=== PATIENT | female | born 1995 | race American Indian/Alaskan Native ===

== ENCOUNTER 2017-12-13 18:57 | Emergency (ER) | payer MEDICAID ==
[2017-12-13 19:23] LABS: Hematocrit 35.1 % (30.3-42.9); Hemoglobin 11.7 gm/dl (10.1-14.3); Mean Corpuscular HGB Conc 33 % (30-34); Mean Corpuscular Volume 73 fl (79-97); Platelet Count 258 K/mm3 (140-440); Red Blood Count 4.78 M/mm3 (3.65-5.03)
[2017-12-13 19:24] LABS: Mean Corpuscular Hemoglobin 25 pg (28-32); Red Cell Distribution Width 20.1 % (13.2-15.2)
[2017-12-13] MEDS ORDERED: NACL 0.9% 1000 ML 1,000 ML IV ONE (23:15)
[2017-12-13] MEDS ORDERED: ZOFRAN IV ONE (23:16)
--- NOTE | 2017-12-13 23:17 | Emergency Department Report ---
ED Female HPI - General Chief complaint: Abdominal Pain Stated complaint: ABD PAIN Time Seen by Provider: 12/13/17 23:07 Source: patient Mode of arrival: Ambulatory Limitations: No Limitations - History of Present Illness Initial comments: Patient is a 22-year-old female who is presenting with some lower abdominal cramping for the last 2-3 days. Patient states that she is noticing small amount of spotting when she wipes after urinating. Patient also has a pressure sensation in the suprapubic region. Patient took a home test which was positive. Patient's last menstrual period was the end of September 2017. Patient denies any fevers chills cough or upper abdominal pain diarrhea at this time. Patient is having some nausea and vomiting. - Related Data Previous Rx's Medication Instructions Recorded Last Taken Type Nitrofurantoin [place]/M-Cryst 100 mg PO Q12HR #14 capsule 12/14/17 Unknown Rx [Macrobid CAP] Ondansetron [Zofran Odt] 4 mg PO Q8HR PRN #10 tab.rapdis 12/14/17 Unknown Rx Allergies Allergy/AdvReac Type Severity Reaction Status Date / Time No Known Allergies Allergy Unverified 12/13/17 19:03 ED Review of Systems ROS: Stated complaint: ABD PAIN Other details as noted in HPI Comment: All other systems reviewed and negative ED Past Medical Hx - Past Medical History Previous Medical History?: Yes Additional medical history: Ectopic 2014 - Surgical History Past Surgical History?: Yes Additional Surgical History: Ectopic - Social History Smoking Status: Former Smoker Substance Use Type: None - Medications Home Medications: Home Medications Medication Instructions Recorded Confirmed Last Taken Type Nitrofurantoin [place]/M-Cryst 100 mg PO Q12HR #14 capsule 12/14/17 Unknown Rx [Macrobid CAP] Ondansetron [Zofran Odt] 4 mg PO Q8HR PRN #10 tab.rapdis 12/14/17 Unknown Rx ED Physical Exam - General Limitations: No Limitations General appearance: alert, in no apparent distress - Head Head exam: Present: atraumatic, normocephalic - Eye Eye exam: Present: normal appearance - ENT ENT exam: Present: mucous membranes moist - Neck Neck exam: Present: normal inspection - Respiratory Respiratory exam: Present: normal lung sounds bilaterally. Absent: respiratory distress, wheezes, rales, rhonchi - Cardiovascular Cardiovascular Exam: Present: regular rate, normal rhythm. Absent: systolic murmur, diastolic murmur, rubs, gallop - GI/Abdominal GI/Abdominal exam: Present: soft, tenderness (mild suprapubic pain), normal bowel sounds. Absent: distended, guarding, rebound, rigid - Extremities Exam Extremities exam: Present: normal inspection - Back Exam Back exam: Present: normal inspection - Neurological Exam Neurological exam: Present: alert, oriented X3 - Psychiatric Psychiatric exam: Present: normal affect, normal mood - Skin Skin exam: Present: warm, dry, intact, normal color. Absent: rash ED Course Vital Signs 12/13/17 19:00 Temperature 98.6 F Pulse Rate 86 Respiratory 16 Rate Blood Pressure 129/86 O2 Sat by Pulse 100 Oximetry ED Medical Decision Making - Lab Data Result diagrams: 12/13/17 19:13 - Radiology Data Radiology results: report reviewed Ultrasound OB shows heart rate of 177 with a fetus that measures 9 weeks 3 days - Medical Decision Making Age 22-year-old Yoly female who is having some lower pelvic cramping and spotting when she urinates. Patient has IUP present she was worried about ectopic Mrs. been ruled out. Patient most likely has a urinary tract infection given the fact she has some urinary frequency and some spotting when she urinates with some mild discomfort however the patient does not want to give a urine sample here in the emergency department. Patient states she would rather get checked with her BIT TAPPER. Patient states she's been in the emergency department for quite some time she's tired and would like to take her young daughter home. Empirically I start the patient on some Macrobid give the patient Zofran for her nausea and patient will be discharged to follow with her BIT TAPPER. Patient did receive IV fluids and states that her headache is improved and she does feel slightly better. Critical care attestation.: If time is entered above; I have spent that time in minutes in the direct care of this critically ill patient, excluding procedure time. ED Disposition Clinical Impression: Abdominal pain affecting Normal IUP (intrauterine ) on ultrasound Qualifiers: Trimester: first trimester Qualified Code(s): Z34.91 - Encounter for supervision of normal , unspecified, first trimester Disposition: - TO HOME OR SELFCARE Is pt being admited?: No Does the pt Need Aspirin: No Condition: Stable Instructions: Urinary Tract Infection in Women (ED) Prescriptions: Nitrofurantoin [place]/M-Cryst [Macrobid CAP] 100 mg PO Q12HR #14 capsule Ondansetron [Zofran Odt] 4 mg PO Q8HR PRN #10 tab.rapdis PRN Reason: Nausea Referrals: JUDIT WADDELL MD [Primary Care Provider] - 3-5 Days
--- NOTE | 2017-12-13 23:42 | Ultrasound Report ---
FINAL REPORT PROCEDURE: US OB TRANSABDOMINAL AND TRANSVAGINAL TECHNIQUE: Real-time transabdominal and transvaginal sonography of the uterus, placenta, amniotic fluid, adnexa, and fetus was performed with image documentation. Measurements were obtained to determine age/size. M-mode Doppler was used to document heartbeat. CPT 41894 and 76901 HISTORY: Pain, bleeding. COMPARISON: No prior studies are available for comparison. FINDINGS: CRL: 26 mm, which corresponds to a gestational age of: 9 weeks, 3 days. Yolk Sac: Normal. Embryonic Cardiac Activity: 173 beats per minute. Gestational Sac: 1.5 x 1.4 x 1.6 cm subchorionic bleed. Amniotic fluid: Normal. Cervix: Normal. Uterus: 11.3 x 6.8 x 8.4 cm. Right Ovary: 4.4 x 3.1 x 3.08 cm. Complex 2.6 x 2.3 x 2.3 cm hypoechoic lesion with septations. Normal flow. Left Ovary: 3.52 x 1.58 x 1.67 cm. Normal flow. Estimated delivery date: 07/15/2018. Uterus and adnexa: Normal. IMPRESSION: 1. Single live intrauterine gestation at approximately 9 weeks, 3 days. 2. EDC by US 07/15/2018. 3. Complete anatomic survey at 18-20 weeks suggested. At this time subchorionic bleed can be re-evaluated.
--- NOTE | 2017-12-13 23:43 | Ultrasound Report ---
FINAL REPORT PROCEDURE: US OB TRANSABDOMINAL AND TRANSVAGINAL TECHNIQUE: Real-time transabdominal and transvaginal sonography of the uterus, placenta, amniotic fluid, adnexa, and fetus was performed with image documentation. Measurements were obtained to determine age/size. M-mode Doppler was used to document heartbeat. CPT 04526 and 20887 HISTORY: Pain, bleeding. COMPARISON: No prior studies are available for comparison. FINDINGS: CRL: 26 mm, which corresponds to a gestational age of: 9 weeks, 3 days. Yolk Sac: Normal. Embryonic Cardiac Activity: 173 beats per minute. Gestational Sac: 1.5 x 1.4 x 1.6 cm subchorionic bleed. Amniotic fluid: Normal. Cervix: Normal. Uterus: 11.3 x 6.8 x 8.4 cm. Right Ovary: 4.4 x 3.1 x 3.08 cm. Complex 2.6 x 2.3 x 2.3 cm hypoechoic lesion with septations. Normal flow. Left Ovary: 3.52 x 1.58 x 1.67 cm. Normal flow. Estimated delivery date: 07/15/2018. Uterus and adnexa: Normal. IMPRESSION: 1. Single live intrauterine gestation at approximately 9 weeks, 3 days. 2. EDC by US 07/15/2018. 3. Complete anatomic survey at 18-20 weeks suggested. At this time subchorionic bleed can be re-evaluated.
[2017-12-14 01:29] VITALS: BP 122/62
== END 2017-12-14 01:29 | disposition home or self-care (01) ==
LOC: ED 18:57
DX: O26.891 Other specified pregnancy related conditions, first trimester (principal); R10.30 Lower abdominal pain, unspecified; Z3A.08 8 weeks gestation of pregnancy; Z87.891 Personal history of nicotine dependence
CPT/HCPCS: 36415; 76801; 76817; 84703; 85027; 86900; 86901; 96361; 96374; 99284; J2405; J7030

== ENCOUNTER 2018-05-18 16:19 | Outpatient (CLI) | payer MEDICAID ==
[2018-05-18 16:47] VITALS: BP 105/57
[2018-05-18] MEDS ORDERED: VISTARIL PO ONE (18:15)
[2018-05-18 18:18] LABS: Bilirubin,Urine NEG (Negative); Blood,Urine NEG (Negative); Color,Urine Yellow (Yellow); Mucus,Urine FEW /HPF; Urobilinogen,Urine < 2.0 mg/dL (<2.0)
== END 2018-05-18 18:15 | disposition home or self-care (01) ==
LOC: TRG 16:19
PROVIDERS: ATTEND Obstetrics & Gynecology
DX: O47.03 False labor before 37 completed weeks of gestation, third trimester (principal); Z3A.31 31 weeks gestation of pregnancy
CPT/HCPCS: 59025; 81001; Q0177

== ENCOUNTER 2018-08-27 23:47 | Observation (INO) | payer MEDICAID ==
--- NOTE | 2018-08-28 01:02 | Emergency Department Report ---
ED Headache HPI - General Chief Complaint: Skin Rash Stated Complaint: SWELLING Time Seen by Provider: 08/28/18 00:27 Source: patient, family - History of Present Illness Initial Comments: This is a 23-year-old female presenting to the emergency room report that she has headache and that she delivered her baby [address] [facility] and her RURAL MAIL CONTRACTOR was Dr. Skyler Madrid. She said that during she had swelling with itching in various parts of body but reports that she woke up this morning and she had swelling to her face in she had discussed with her doctor because her blood pressure has been elevated after that if she has swelling that she should have her blood pressure checked and she said he had she had a checked at [facility] and it was 135/101. She reports headache with some lightheadedness. Blood pressure in triage area was 150/102 and it was 142/92 and ED area. Patient reports generalized swelling that comes and goes. She says that she spoke with the crisis Center and Dr. Mardid or RURAL MAIL CONTRACTOR called her and told her to go to the emergency room. She said her headache started just prior to coming to the emergency room and it is 7 out of 10 and located to the sides of her head. Denies any nausea or vomiting. Denies any fever or chills or neck stiffness. Denies any urinary burning, frequency or urgency. Denies any chest pain or shortness of breath. Eyes any visual disturbances. No medication taken prior to coming to the emergency room . Timing/Duration: constant Quality: severe Head Injury Location: parietal (bilateral) Recent Head Trauma: occasional headaches Modifying Factors: improves with: other (none) Associated Symptoms: other (dizziness and itching. Intermittent swelling to different parts of her body). denies: confusion, fatigue, facial pain, fever/chills, flushing, loss of consciousness, nausea/vomiting, nasal congestion, nasal drainage, numbness in legs/feet, rash, seizures, sinus infection, stiff neck, vision changes, weakness Allergies/Adverse Reactions: Allergies No Known Allergies Allergy (Verified 05/18/18 17:37) ED Review of Systems ROS: Stated complaint: SWELLING Other details as noted in HPI Constitutional: denies: chills, fever Eyes: denies: eye pain, vision change ENT: denies: ear pain, throat pain, epistaxis, congestion Respiratory: denies: cough, shortness of breath, wheezing Cardiovascular: edema. denies: chest pain, palpitations, dyspnea on exertion, s yncope, paroxysmal nocturnal dyspnea Gastrointestinal: denies: abdominal pain, nausea, vomiting, constipation, hematemesis, hematochezia Genitourinary: denies: hematuria Musculoskeletal: denies: back pain, joint swelling, arthralgia, myalgia Skin: pruritus. denies: rash Neurological: headache, other (dizziness). denies: weakness, numbness, paresthesias, confusion, abnormal gait, vertigo ED Past Medical Hx - Past Medical History Previous Medical History?: Yes Hx Hypertension: No Hx Diabetes: No Hx Deep Vein Thrombosis: No Hx Renal Disease: No Hx Sickle Cell Disease: No Hx Seizures: No Hx Asthma: No Hx HIV: No Additional medical history: Ectopic 2014 - Surgical History Past Surgical History?: Yes Additional Surgical History: Ectopic - Family History Family history: no significant - Social History Smoking Status: Never Smoker Substance Use Type: None ED Physical Exam - General Limitations: No Limitations General appearance: alert, in no apparent distress - Head Head exam: Present: atraumatic, normocephalic, normal inspection, other (normal exam) - Eye Eye exam: Present: normal appearance, PERRL, EOMI. Absent: nystagmus Pupils: Present: normal accommodation - ENT ENT exam: Present: normal exam, normal orophraynx, mucous membranes moist, TM's normal bilaterally, normal external ear exam - Neck Neck exam: Present: normal inspection, full ROM, other (no C-spine tenderness). Absent: tenderness, meningismus, lymphadenopathy - Respiratory Respiratory exam: Present: normal lung sounds bilaterally. Absent: respiratory distress, chest wall tenderness - Cardiovascular Cardiovascular Exam: Present: regular rate, normal rhythm, normal heart sounds. Absent: systolic murmur, diastolic murmur - GI/Abdominal GI/Abdominal exam: Present: soft, normal bowel sounds. Absent: distended, tenderness, guarding, rebound, rigid, organomegaly - Extremities Exam Extremities exam: Present: normal inspection, full ROM, normal capillary refill, other (No cce. + 2 pulses in all extremities, no neurovascular compromise). Absent: tenderness, pedal edema, joint swelling, calf tenderness - Back Exam Back exam: Present: normal inspection, full ROM, other (Ambulates without any difficulties). Absent: tenderness, CVA tenderness (L), muscle spasm, rash noted - Expanded Neurological Exam Expanded Neurological exam: Absent: innattentive, memory loss-remote event, memory loss- recent event, ataxia, receptive aphasia, expressive aphasia, total aphasia, tremor, protecting the airway Patient oriented to: Present: person, place, time Speech: Present: fluid speech Cranial nerves: EOM's Intact: Normal, Gag Reflex: Normal, Tongue Deviation: Normal, Nystagmus: Normal, Facial Sensation: Normal Cerebellar function: Romberg: Normal Upper motor neuron: Pronator Drift: Normal, Sensory Extinction: Normal Sensory exam: Upper Extremity Light Touch: Normal, Upper Extremity Pin Prick: Normal, Upper Extremity Temperature: Normal, UE 2 Point Discrimination: Normal, Lower Extremity Light Touch: Normal, Lower Extremity Pin Prick: Normal, Lower Extremity Temperature: Normal, LE 2 Point Discrimination: Normal Motor strength exam: RUE: 5, LUE: 5, RLE: 5, LLE: 5 Best Eye Response (Ferney): (4) open spontaneously Best Motor Response (Ruth Ann): (6) obeys commands Best Verbal Response (Ruth Ann): (5) oriented Ruth Ann Total: 15 - Psychiatric Psychiatric exam: Present: normal affect, normal mood - Skin Skin exam: Present: warm, dry, intact, normal color. Absent: rash ED Course Vital Signs 08/27/18 08/28/18 23:51 01:08 Temperature 97.9 F Pulse Rate 84 71 Respiratory 18 18 Rate Blood Pressure 150/102 Blood Pressure 142/92 [Right] O2 Sat by Pulse 98 99 Oximetry - Reevaluation(s) Reevaluation #1: 08/28/18 01:29 Patient with headache and she received Tylenol [address] Garcia. Patient and patient will be had an CT scan of the head and brain without contrast and lab work. Patient updated and plans and will call OB after CT scan and lab work is back. Blood pressure in triage 150/102 and it is now 142/92 Patient updated and plan that she is in agreement. Reevaluation #2: 08/28/18 03:23 Patient headache is better after Tylenol. Urinalysis has less than 15 protein. Contaminated. CBC and CMP is stable. CT scan of the head is normal and no change in neurological status. Awaiting RURAL MAIL [employer]OR call back Reevaluation #3: 08/28/18 04:20 Patient stable. Ispoke with Dr Muro who wants patient admitted to L&D. She will call to give orders. Patient stable . LDH and Uric acid ordered. Patient updated on info and will be transferred by nurse ED Medical Decision Making - Lab Data Result diagrams: 08/28/18 01:27 08/28/18 01:27 Lab Results 08/28/18 08/28/18 08/28/18 Range/Units 01:27 01:27 02:57 WBC 6.8 (4.5-11.0) K/mm3 RBC 5.50 H (3.65-5.03) M/mm3 Hgb 11.9 (10.1-14.3) gm/dl Hct 37.1 (30.3-42.9) % MCV 68 L (79-97) fl MCH 22 L (28-32) pg MCHC 32 (30-34) % RDW 21.9 H (13.2-15.2) % Plt Count 276 (140-440) K/mm3 Lymph % (Auto) 35.7 H (13.4-35.0) % [place] % (Auto) 6.8 (0.0-7.3) % Eos % (Auto) 3.1 (0.0-4.3) % Baso % (Auto) 2.1 H (0.0-1.8) % Lymph # 2.4 (1.2-5.4) K/mm3 [facility] # 0.5 (0.0-0.8) K/mm3 Eos # 0.2 (0.0-0.4) K/mm3 Baso # 0.1 (0.0-0.1) K/mm3 Seg Neutrophils % 52.3 (40.0-70.0) % Seg Neutrophils # 3.5 (1.8-7.7) K/mm3 Sodium 140 (137-145) mmol/L Potassium 4.0 (3.6-5.0) mmol/L Chloride 103.6 (98-107) mmol/L Carbon Dioxide 29 (22-30) mmol/L Anion Gap 11 mmol/L BUN 11 (7-17) mg/dL Creatinine 0.7 (0.7-1.2) mg/dL Estimated GFR > 60 ml/min BUN/Creatinine Ratio 16 % Glucose 84 (65-100) mg/dL Calcium 9.8 (8.4-10.2) mg/dL Total Bilirubin 0.30 (0.1-1.2) mg/dL AST 24 (5-40) units/L ALT 35 (7-56) units/L Alkaline Phosphatase 140 H (35-129) units/L Total Protein 7.0 (6.3-8.2) g/dL Albumin 4.6 (3.9-5) g/dL Albumin/Globulin Ratio 1.9 % Urine Color Yellow (Yellow) Urine Turbidity Slightly-cloudy (Clear) Urine pH 5.0 (5.0-7.0) Ur Specific [place] 1.025 (1.003-1.030) Urine Protein <15 mg/dl (Negative) mg/dL Urine Glucose (UA) Neg (Negative) mg/dL Urine Ketones Neg (Negative) mg/dL Urine Blood Neg (Negative) Urine Nitrite Neg (Negative) Urine Bilirubin Neg (Negative) Urine Urobilinogen 2.0 (<2.0) mg/dL Ur Leukocyte Esterase Mod (Negative) Urine WBC (Auto) 7.0 H (0.0-6.0) /HPF Urine RBC (Auto) 4.0 (0.0-6.0) /HPF U Epithel Cells (Auto) 15.0 H (0-13.0) /HPF Urine Mucus 1+ /HPF - Radiology Data Radiology results: report reviewed Ct scan of head and brain dictated by Radiologist and repoty reviewed by myself. No acute findings Findings [facility] [address] [place] [address] Cat Scan Report Signed Patient: JEANNIE GARCIA MR#: [id number] : 1995 Acct:[id number] Age/Sex: 23 / F ADM Date: 08/27/18 Loc: ED Attending Dr: Ordering Physician: MATT ORNELAS Date of Service: 08/28/18 Procedure(s): CT head/brain wo con Accession Number(s): [id number] cc: MATT ORNELAS FINAL REPORT EXAM: CT HEAD/BRAIN WO CON HISTORY: headache//increased BP TECHNIQUE: Routine axial imaging was obtained of the brain without IV contrast. FINDINGS: The ventricular system is appropriate in size and is symmetric. There is no evidence of acute stroke or hemorrhage. The basal cisterns appear normal. The visualized sinuses are clear. The masto id air cells are well pneumatized. The calvarium appears intact. IMPRESSION: No acute intracranial process. Transcribed By: EAGLE Dictated By: DADA ZENG MD Electronically Authenticated By: DADA ZENG MD Signed Date/Time: 08/28/18199 DD/ 1 TD/TT: 08/28/18201 - Medical Decision Making This is a 23-year-old female here report that she is having headache, itching lightheadedness and her blood pressures been elevated and she is 7 weeks . Physical exam shows normal neurological and no other abnormal f indings except for a blood pressure was elevated. Patient had CBC and CMP done and stable except for alkaline phosphatase at 140. Urinalysis with less than 15 protein and her urine is contaminated with 8 white blood cells and moderate leukocyte esterase. I think this is from contamination. LDL and uric acid is normal. I spoke with Dr. Garcia regarding patient presentation and it was determined that patient should have CT scan of the head without contrast which she did and it shows no acute findings. I then spoke with Dr. Vail who is the on-call RURAL MAIL CONTRACTOR spoke with Dr. Garcia was the ED attending physician and it was decided the patient will be admitted to labor and delivery and magnesium will be started in labor and delivery. Patient remained stable throughout ED course. She is nontoxic in appearance. Myself and Dr. Garcia explained to patient diagnosis and treatment plan and she is in agreement. She was given Benadryl 50 mg by mouth for itching and Tylenol 975 mg for headache which relieved Patient discharged to labor and delivery in no acute distress. - Differential Diagnosis Intracranial vs extracranial abnormality, preeclampsia Critical care attestation.: If time is entered above; I have spent that time in minutes in the direct care of this critically ill patient, excluding procedure time. ED Disposition Clinical Impression: Pruritic condition, Hypertension in , condition, Generalized edema Headache Qualifiers: Headache type: unspecified Headache chronicity pattern: acute headache Intractability: not intractable Qualified Code(s): R51 - Headache Disposition: OP ADMIT IP TO THIS HOSP Is pt being admited?: Yes Does the pt Need Aspirin: No Condition: Stable
[2018-08-28] MEDS ORDERED: TYLENOL PO ONE (01:06)
[2018-08-28 01:47] LABS: Basophils # (Auto) 0.1 K/mm3 (0.0-0.1); Basophils % (Auto) 2.1 % (0.0-1.8); Eosinophils # (Auto) 0.2 K/mm3 (0.0-0.4); Eosinophils % (Auto) 3.1 % (0.0-4.3); Hematocrit 37.1 % (30.3-42.9); Hemoglobin 11.9 gm/dl (10.1-14.3); Lymphocytes # (Auto) 2.4 K/mm3 (1.2-5.4); Lymphocytes % (Auto) 35.7 % (13.4-35.0); Mean Corpuscular HGB Conc 32 % (30-34); Monocytes # (Auto) 0.5 K/mm3 (0.0-0.8); Monocytes % (Auto) 6.8 % (0.0-7.3); Platelet Count 276 K/mm3 (140-440)
[2018-08-28 01:49] LABS: Mean Corpuscular Hemoglobin 22 pg (28-32); Mean Corpuscular Volume 68 fl (79-97); Red Cell Distribution Width 21.9 % (13.2-15.2)
--- NOTE | 2018-08-28 02:00 | Cat Scan Report ---
FINAL REPORT EXAM: CT HEAD/BRAIN WO CON HISTORY: headache//increased BP TECHNIQUE: Routine axial imaging was obtained of the brain without IV contrast. FINDINGS: The ventricular system is appropriate in size and is symmetric. There is no evidence of acute stroke or hemorrhage. The basal cisterns appear normal. The visualized sinuses are clear. The mastoid air ce lls are well pneumatized. The calvarium appears intact. IMPRESSION: No acute intracranial process.
[2018-08-28 02:06] LABS: Alanine Aminotransferase 35 units/L (7-56); Albumin 4.6 g/dL (3.9-5); BUN/Creatinine Ratio 16; Blood Urea Nitrogen 11 mg/dL (7-17); Calcium 9.8 mg/dL (8.4-10.2); Hemolysis Index 3
[2018-08-28 03:19] LABS: Bilirubin,Urine NEG (Negative); Blood,Urine NEG (Negative); Color,Urine Yellow (Yellow); Mucus,Urine 1+ /HPF; Protein,Urine <15 mg/dL mg/dL (Negative)
[2018-08-28] MEDS ORDERED: BENADRYL PO ONE (03:22)
--- NOTE | 2018-08-28 04:18 | Emergency Department Report ---
Blank Doc - Documentation Documentation: I evaluated Ms. Garcia alongside my colleague Della TEAGUE. Ms. Garcia is a 23-year-old female who is 7 weeks . I was concerned for newly elevated hypertension with headache and reported generalized edema. I was concerned for preeclampsia. Ms. Garcia did not have elevated blood pressure with either of her pregnancies. I requested obstetrical consultation. I spoke with provider network manager Dr. Muro who graciously agreed to admit Ms. Garcia to the mother/baby unit. She will provide orders including IV magnesium. Admission diagnosis: hypertension
[2018-08-28 04:28] LABS: Uric Acid 4.1 mg/dL (3.5-7.6)
--- NOTE | 2018-08-28 08:27 | History and Physical Report ---
History of Present Illness Date of admission: 08/28/18 04:11 Chief complaint: headache elevated blood pressure History of present illness: 23yo 7 weeks s/p uncomplicated presents to ED complaining of headaches, generalized swelling and elevated blood pressures. In the ED her blood pressures were recorded as 140-150/90-100s. She denies any history of chronic or gestational hypertension or preeclampsia. She is a patient of Dr. Madrid and had an uncomplicated vaginal delivery at [facility] on 07/04/18. She called her doctor's office complaining of areas of swelling on her arm, hands and legs that itch then resolve. She was told to check her blood pressures. She went to [facility] and had blood pressures of 135/96, 135/97, 132/92 and 135/101. Her doctor then told her to go to the ER for evaluation. Upon her arrival to L&D her blood pressures were 110s/60-70s. Upon further inquiry she states she has had a headache her entire . A Head CT done in the ER was negative. UA reveals trace protein. PIH labs all within normal limits. Past History Past Medical History: other (headaches) Past Surgical History: TIRE SPECIALIST/uterine surgery (exploratory laparotomy for ectopic , unilateral salpingectomy), other Social history: - Obstetrical History : 3 Para: 3 Medications and Allergies Allergies Allergy/AdvReac Type Severity Reaction Status Date / Time No Known Allergies Allergy Verified 05/18/18 17:37 - Vital Signs Vital signs: Vital Signs Temp Pulse Resp BP Pulse Ox 97.9 F 84 18 150/102 98 08/27/18 23:51 08/27/18 23:51 08/27/18 23:51 08/27/18 23:51 08/27/18 23:51 Temp Pulse Resp BP Pulse Ox 98.0 F 67 18 111/69 99 08/28/18 05:44 08/28/18 07:39 08/28/18 05:44 08/28/18 07:39 08/28/18 01:08 - Physical Exam Abdomen: Positive: soft Extremities: Positive: normal Results Result Diagrams: 08/28/18 01:27 08/28/18 01:27 Abnormal lab results 08/28/18 08/28/18 08/28/18 Range/Units 01:27 01:27 02:57 RBC 5.50 H (3.65-5.03) M/mm3 MCV 68 L (79-97) fl MCH 22 L (28-32) pg RDW 21.9 H (13.2-15.2) % Lymph % (Auto) 35.7 H (13.4-35.0) % Baso % (Auto) 2.1 H (0.0-1.8) % Alkaline Phosphatase 140 H (35-129) units/L Urine WBC (Auto) 7.0 H (0.0-6.0) /HPF U Epithel Cells (Auto) 15.0 H (0-13.0) /HPF All other labs normal. Assessment and Plan - Patient Problems (1) Labile blood pressure Current Visit: Yes Status: Acute Plan to address problem: Patient was monitored on L&D for 2hrs. Her blood pressures were all normotensive. (110-120s/60-80s). She denies headache, RUQ pain or visual changes. Plan is to discharge home with PIH precautions and to be seen by her metalsmith apprentice on 08/29/2018. If PIH symptoms develop or blood pressures are elevated she is to return to the hospital.
[2018-08-28 08:43] VITALS: BP 121/78
== END 2018-08-28 09:30 | disposition home or self-care (01) ==
LOC: ED 23:47 → LD 08-28 04:11 → UNDOADMIN 08-28 04:50
PROVIDERS: ADMIT Obstetrics & Gynecology; ATTEND Obstetrics & Gynecology
DX: O16.5 Unspecified maternal hypertension, complicating the puerperium (principal); O99.89 Other specified diseases and conditions complicating pregnancy, childbirth and the puerperium; R51 Headache
CPT/HCPCS: 36415; 70450; 80053; 81001; 83615; 84550; 85025; 99284; G0378

== ENCOUNTER 2019-02-02 11:29 | Emergency (ER) | payer MEDICAID ==
--- NOTE | 2019-02-02 11:43 | Emergency Department Report ---
Blank Doc - Documentation Documentation: 23 y o female presents with right knee pain s/p trip anf fall down a couple of stairs today at home no loc Ambulating well Xr ACC eval
[2019-02-02 11:46] VITALS: BP 106/73
--- NOTE | 2019-02-02 12:16 | XRay Report ---
PROCEDURE: XR KNEE 3V RT TECHNIQUE: 3 views right knee HISTORY: pain COMPARISONS: None FINDINGS: Alignment normal. Joint space normal. No effusion. No acute fracture IMPRESSION: Normal for patient age.. This document is electronically signed by Griffin Martinez MD., February 02 2019 01:14:05 PM ET
--- NOTE | 2019-02-02 14:06 | Emergency Department Report ---
ED Lower Extremity HPI - General Chief Complaint: Extremity Injury, Lower Stated Complaint: RT LEG PAIN Time Seen by Provider: 02/02/19 11:41 Source: patient, family Mode of arrival: Ambulatory Limitations: No Limitations - History of Present Illness Initial Comments: This is a 23-year-old female here complaining of right knee pain for 3 years. She states that she bent her right knee and leg while walking down the stairs a couple days and the pain is worse now. Her pain is 6/10 and she reports a can worse with flexion and extension better with rest. Denies any fever or redness. Denies any fall denies any numbness or tingling. Complaint: knee injury Onset/Timin -: days(s) Injury: Knee: Right (right knee) Type of Injury: other (this then) Place: home Severity: moderate Severity scale (0 -10): 6 Improves With: nothing Worsens With: weight bearing Context: walking Associated Symptoms: swelling, ambulatory. denies: numbness, tingling Treatments Prior to Arrival: other (none) - Related Data Previous Rx's Medication Instructions Recorded Last Taken Type Naproxen [Naprosyn TAB] 500 mg PO BID PRN #12 tablet 02/02/19 Unknown Rx Allergies Allergy/AdvReac Type Severity Reaction Status Date / Time No Known Allergies Allergy Verified 02/02/19 11:30 ED Review of Systems ROS: Stated complaint: RT LEG PAIN Other details as noted in HPI Constitutional: denies: chills, fever Respiratory: denies: cough, shortness of breath, wheezing Cardiovascular: denies: chest pain, palpitations Musculoskeletal: joint swelling, arthralgia. denies: back pain, myalgia Skin: denies: rash Neurological: denies: headache, weakness, numbness, paresthesias, abnormal gait, vertigo ED Past Medical Hx - Past Medical History Previous Medical History?: Yes (it was empty when again this morning) Hx Hypertension: No Hx Congestive Heart Failure: No Hx Diabetes: No Hx Deep Vein Thrombosis: No Hx Renal Disease: No Hx Sickle Cell Disease: No Hx Seizures: No Hx Asthma: No Hx COPD: No Hx HIV: No Additional medical history: Ectopic 2014 - Surgical History Past Surgical History?: Yes Additional Surgical History: Ectopic - Family History Family history: hypertension (this is a beautiful that he dragged) - Social History Smoking Status: Never Smoker Substance Use Type: None - Medications Home Medications: Home Medications Medication Instructions Recorded Confirmed Last Taken Type Naproxen [Naprosyn TAB] 500 mg PO BID PRN #12 tablet 02/02/19 Unknown Rx ED Physical Exam - General Limitations: No Limitations General appearance: alert, in no apparent distress - Head Head exam: Present: atraumatic, normocephalic (history of his medical record) - Eye Eye exam: Present: normal appearance, PERRL - ENT ENT exam: Present: normal exam, normal orophraynx, mucous membranes moist - Neck Neck exam: Present: normal inspection, full ROM. Absent: tenderness - Respiratory Respiratory exam: Present: normal lung sounds bilaterally. Absent: respiratory distress - Cardiovascular Cardiovascular Exam: Present: regular rate, normal rhythm, normal heart sounds - Extremities Exam Extremities exam: Present: normal inspection, full ROM - Back Exam Back exam: Present: normal inspection, full ROM - Neurological Exam Neurological exam: Present: alert, oriented X3, normal gait - Psychiatric Psychiatric exam: Present: normal affect, normal mood - Skin Skin exam: Present: warm, dry, intact, normal color. Absent: rash ED Course Vital Signs 02/02/19 11:41 Temperature 98.1 F Pulse Rate 72 Respiratory 18 Rate Blood Pressure 106/73 O2 Sat by Pulse 97 Oximetry - Reevaluation(s) Reevaluation #1: 02/02/19 14:51 She received Hydes 5/325 2 tablets by mouth for knee pain. ED Lower Extremity MDM - Radiology Data Radiology results: report reviewed X-ray right knee dictated by radiologist report reviewed by myself. See below for details Findings [facility] [address] [place] [address] XRay Report Signed Patient: JEANNIE MURPHY MR#: [id number] : 1995 Acct:[id number] Age/Sex: 23 / F ADM Date: 02/02/19 Loc: ED Attending Dr: Ordering Physician: MATT LOO Date of Service: 02/02/19 Procedure(s): XR knee 3V RT Accession Number(s): [id number] cc: MATT LOO Fluoro Time In Minutes: PROCEDURE: XR KNEE 3V RT TECHNIQUE: 3 views right knee HISTORY: pain COMPARISONS: None FINDINGS: Alignment normal. Joint space normal. No effusion. No acute fracture IMPRESSION: Normal for patient age.. This document is electronically signed by Griffin Terrazas MD., February 02 2019 01:14:05 PM ET Transcribed By: DARI Dictated By: GRIFFIN TERRAZAS MD Electronically Authenticated By: GRIFFIN TERRAZAS MD Signed Date/Time: 02/02/196 DD/ 04 TD/TT: 02/02/19 120 - Medical Decision Making This is a 23-year-old female here for flareup of right knee pain. X-ray revealed no acute findings. Patient received pain medication in emergency room and I relayed x-ray results to her and told her that she needs to follow-up with orthopedic doctor for chronic right knee pain. She voiced understanding and she was given pain medication emergency room and discharged home with prescription for naproxen. Patient is stable and her pain is better and discharged home with her family in stable condition that he likely - Differential Diagnosis FX, sprain, MSK pain Critical care attestation.: If time is entered above; I have spent that time in minutes in the direct care of this critically ill patient, excluding procedure time. ED Disposition Clinical Impression: Right anterior knee pain Disposition: DC-01 TO HOME OR SELFCARE Is pt being admited?: No Does the pt Need Aspirin: No Condition: Stable Instructions: Arthralgia (ED), Knee Pain (ED), Knee Exercises (GEN) Additional Instructions: These follow-up with your orthopedic doctor in 3-5 days Take naproxen as prescribed If he condition worsens, please return to emergency room Prescriptions: Naproxen [Naprosyn TAB] 500 mg PO BID PRN #12 tablet PRN Reason: Pain , Severe (7-10) Referrals: CHRISTIAN LYLE NP [Primary Care Provider] - 2-3 Days
[2019-02-02] MEDS ORDERED: NORCO 5/325 PO ONE (14:50)
== END 2019-02-02 15:28 | disposition home or self-care (01) ==
LOC: ED 11:29
DX: M25.561 Pain in right knee (principal)

== ENCOUNTER 2019-05-07 18:26 | Emergency (ER) | payer MEDICAID ==
--- NOTE | 2019-05-07 19:30 | Event Note ---
ED Screening Note Date of service: 05/07/19 Time: 19:27 ED Screening Note: 24 y o f presents with nausea, vaginal bleed and blood in vomit x 1 week This initial assessment/diagnostic orders/clinical plan/treatment(s) is/are subject to change based on patients health status, clinical progression and re- assessment by fellow clinical providers in the ED. Further treatment and workup at subsequent clinical providers discretion. Patient/guardian urged not to elope from the ED as their condition may be serious if not clinically assessed and managed. Initial orders include: ua, upt cbc
[2019-05-07 19:58] LABS: Basophils # (Auto) 0.1 K/mm3 (0.0-0.1); Basophils % (Auto) 0.9 % (0.0-1.8); Eosinophils # (Auto) 0.2 K/mm3 (0.0-0.4); Eosinophils % (Auto) 2.1 % (0.0-4.3); Hematocrit 42.5 % (30.3-42.9); Hemoglobin 14.3 gm/dl (10.1-14.3); Lymphocytes # (Auto) 3.1 K/mm3 (1.2-5.4); Lymphocytes % (Auto) 36.7 % (13.4-35.0); Mean Corpuscular HGB Conc 34 % (30-34); Mean Corpuscular Volume 82 fl (79-97); Monocytes % (Auto) 12.3 % (0.0-7.3); Platelet Count 265 K/mm3 (140-440); Red Blood Count 5.18 M/mm3 (3.65-5.03); Red Cell Distribution Width 14.7 % (13.2-15.2)
[2019-05-07 20:50] LABS: Bilirubin,Urine NEG (Negative); Blood,Urine LG (Negative); Color,Urine Yellow (Yellow); Mucus,Urine 3+ /HPF; Urobilinogen,Urine < 2.0 mg/dL (<2.0)
[2019-05-07 20:59] LABS: HCG Qualitative,Urine Negative (Negative)
[2019-05-07 22:09] LABS: Alanine Aminotransferase 10 units/L (7-56); Albumin 4.3 g/dL (3.9-5); BUN/Creatinine Ratio 15; Blood Urea Nitrogen 12 mg/dL (7-17); Calcium 9.1 mg/dL (8.4-10.2); Hemolysis Index 1
--- NOTE | 2019-05-07 23:12 | Emergency Department Report ---
ED Female HPI - General Chief complaint: Vaginal Bleeding Stated complaint: VAGINAL BLEEDING/VOMITING Time Seen by Provider: 05/07/19 19:27 Source: patient Mode of arrival: Ambulatory Limitations: No Limitations - History of Present Illness Initial comments: Patient is a A1 24-year-old female who presents to the ED with acute onset persistent heavy vaginal bleeding for the last 1 week. Patient states that her last major cycle was on the April and that it was normal in duration and texture. Patient states that over 1 week she's been having persistent vaginal bleeding with nausea. Patient also complains of nasal and sinus congestion for 2 days. Patient states that she is not on any control. Patient denies dizziness, syncope, chest pain, shortness of breath, abdominal pain, vaginal discharge, dysuria, urinary frequency and urgency, fever, chills, low back pain, or sore throat. MD Complaint: vaginal bleeding, other (nausea and vomiting; nasal and sinus congestion) -: Sudden, week(s) (1) Location: other (vaginal) Radiation: non-radiating Severity: severe Severity scale (0 -10): 7 Quality: dull, aching Consistency: constant Improves with: none Worsens with: none Are you Now?: No Last Menstrual Period: 04/24/19 EDC: 01/29/20 Associated Symptoms: denies other symptoms, vaginal bleeding, nausea/vomiting, headaches. denies: vaginal discharge, abdominal pain, fever/chills, loss of appetite, dysuria, hematuria, rash, seizure, shortness of breath, syncope, weakness - Related Data Sexually active: Yes : 1 Para: 0 A: 1 Previous Rx's Medication Instructions Recorded Last Taken Type Naproxen [Naprosyn TAB] 500 mg PO BID PRN #12 tablet 02/02/19 Unknown Rx Cetirizine HCl [Zyrtec 10mg tab] 10 mg PO DAILY #30 tablet 05/07/19 Unknown Rx Fluticasone [Flonase] 1 spray NS QDAY #1 bottle 05/07/19 Unknown Rx Ondansetron [Zofran Odt] 4 mg PO Q6HR PRN #15 tab.rapdis 05/07/19 Unknown Rx medroxyPROGESTERone ACETATE 10 mg PO DAILY #10 tablet 05/07/19 Unknown Rx [Medroxyprogesterone Acetate] Allergies Allergy/AdvReac Type Severity Reaction Status Date / Time No Known Allergies Allergy Verified 02/02/19 11:30 ED Review of Systems ROS: Stated complaint: VAGINAL BLEEDING/VOMITING Other details as noted in HPI Constitutional: denies: chills, fever Eyes: denies: eye pain, eye discharge, vision change ENT: congestion. denies: ear pain, throat pain Respiratory: denies: cough, shortness of breath, SOB with exertion, SOB at rest, wheezing Cardiovascular: denies: chest pain, palpitations Endocrine: no symptoms reported Gastrointestinal: nausea, vomiting. denies: abdominal pain, diarrhea Genitourinary: abnormal menses, other (heavy vaginal bleeding). denies: urgency, dysuria, discharge Musculoskeletal: denies: back pain, joint swelling, arthralgia Skin: denies: rash, lesions Neurological: denies: headache, weakness, paresthesias Psychiatric: denies: anxiety, depression Hematological/Lymphatic: denies: easy bleeding, easy bruising ED Past Medical Hx - Past Medical History Previous Medical History?: Yes Hx Hypertension: No Hx Congestive Heart Failure: No Hx Diabetes: No Hx Deep Vein Thrombosis: No Hx Renal Disease: No Hx Sickle Cell Disease: No Hx Seizures: No Hx Asthma: No Hx COPD: No Hx HIV: No Additional medical history: Ectopic 2014 - Surgical History Past Surgical History?: Yes Additional Surgical History: Ectopic - Social History Smoking Status: Never Smoker Substance Use Type: Alcohol - Medications Home Medications: Home Medications Medication Instructions Recorded Confirmed Last Taken Type Naproxen [Naprosyn TAB] 500 mg PO BID PRN #12 tablet 02/02/19 Unknown Rx Cetirizine HCl [Zyrtec 10mg tab] 10 mg PO DAILY #30 tablet 05/07/19 Unknown Rx Fluticasone [Flonase] 1 spray NS QDAY #1 bottle 05/07/19 Unknown Rx Ondansetron [Zofran Odt] 4 mg PO Q6HR PRN #15 tab.rapdis 05/07/19 Unknown Rx medroxyPROGESTERone ACETATE 10 mg PO DAILY #10 tablet 05/07/19 Unknown Rx [Medroxyprogesterone Acetate] ED Physical Exam - General Limitations: No Limitations General appearance: alert, in no apparent distress - Head Head exam: Present: atraumatic, normocephalic, normal inspection - Eye Eye exam: Present: normal appearance, PERRL, EOMI. Absent: scleral icterus, conjunctival injection, nystagmus, periorbital swelling Pupils: Present: normal accommodation - ENT ENT exam: Present: normal exam, normal orophraynx, mucous membranes moist, TM's normal bilaterally, normal external ear exam - Neck Neck exam: Present: normal inspection, full ROM - Respiratory Respiratory exam: Present: normal lung sounds bilaterally. Absent: respiratory distress, wheezes, rales, rhonchi, chest wall tenderness, prolonged expiratory - Cardiovascular Cardiovascular Exam: Present: regular rate, normal rhythm, normal heart sounds. Absent: systolic murmur, diastolic murmur, rubs, gallop - GI/Abdominal GI/Abdominal exam: Present: soft, normal bowel sounds. Absent: tenderness, guarding, rebound, hyperactive bowel sounds, organomegaly, bruit, pulsatile mass - Rectal Rectal exam: Present: deferred - Bi-manual exam: Present: other (Deferred, patient choice) - Extremities Exam Extremities exam: Present: normal inspection, full ROM, normal capillary refill - Back Exam Back exam: Present: normal inspection, full ROM. Absent: tenderness, CVA tenderness (R), CVA tenderness (L), muscle spasm - Neurological Exam Neurological exam: Present: alert, oriented X3, CN II-XII intact, normal gait, reflexes normal - Psychiatric Psychiatric exam: Present: normal affect, normal mood - Skin Skin exam: Present: warm, dry, intact, normal color. Absent: rash ED Course Vital Signs 05/07/19 19:26 Temperature 98.4 F Pulse Rate 73 Respiratory 18 Rate Blood Pressure 125/83 O2 Sat by Pulse 95 Oximetry - Reevaluation(s) Reevaluation #1: 05/07/19 23:23 This is a 24-year-old female who presented to the ED with complaint of acute onset persistent heavy vaginal bleeding for one week. In the ED, patient is alert and oriented 3 and is in distress. Vital signs are stable. Lab test results were reviewed and are all nonactionable. Patient was discharged home on medications including medroxyprogesterone tablets and given referral to the [facility] physician Dr. Jagruti Valderrama for follow-up. Patient was advised to return to the ED immediately if symptoms get worse. ED Medical Decision Making - Lab Data Result diagrams: 05/07/19 19:39 05/07/19 21:47 - Medical Decision Making This is a 24-year-old female who presented to the ED with complaint of acute onset persistent heavy vaginal bleeding for one week. In the ED, patient is alert and oriented 3 and is in distress. Vital signs are stable. Lab test results were reviewed and are all nonactionable. Patient was discharged home on medications including medroxyprogesterone tablets and given referral to the [facility] physician Dr. Jagruti Valderrama for follow-up. Patient was advised to return to the ED immediately if symptoms get worse. - Differential Diagnosis Dysfunctional uterine bleeding; ; Miscarriage; Acute UTI Critical care attestation.: If time is entered above; I have spent that time in minutes in the direct care of this critically ill patient, excluding procedure time. ED Disposition Clinical Impression: Dysfunctional uterine hemorrhage, Nausea and vomiting in adult, Acute upper respiratory infection Disposition: TO HOME OR SELFCARE Is pt being admited?: No Does the pt Need Aspirin: No Condition: Stable Instructions: Menorrhagia (ED), Upper Respiratory Infection (ED), Acute Nausea and Vomiting (ED) Additional Instructions: Take medication with food, drink plenty of fluids and follow-up with the [facility] physician in 7-10 days for reevaluation. Return to the ED immediately if symptoms get worse. Prescriptions: Fluticasone [Flonase] 1 spray NS QDAY #1 bottle medroxyPROGESTERone ACETATE [Medroxyprogesterone Acetate] 10 mg PO DAILY #10 tablet Ondansetron [Zofran Odt] 4 mg PO Q6HR PRN #15 tab.rapdis PRN Reason: nausea Cetirizine HCl [Zyrtec 10mg tab] 10 mg PO DAILY #30 tablet Referrals: SAI VALDERRAMA MD [Staff Physician] - 3-5 Days Forms: Work/School Release Form(ED) Time of Disposition: 23:12 Print Language: ANGOLAN
[2019-05-07 23:52] VITALS: BP 123/83
== END 2019-05-07 23:24 | disposition home or self-care (01) ==
LOC: ED 18:26
DX: N93.8 Other specified abnormal uterine and vaginal bleeding (principal); J06.9 Acute upper respiratory infection, unspecified; Z98.890 Other specified postprocedural states; Z79.899 Other long term (current) drug therapy
CPT/HCPCS: 36415; 80053; 81001; 81025; 85025; 99283

== ENCOUNTER 2019-06-04 18:47 | Emergency (ER) | payer MEDICAID ==
--- NOTE | 2019-06-04 20:29 | Event Note ---
ED Screening Note Date of service: 06/04/19 Time: 20:25 ED Screening Note: 24 y o f presents with pelv pain This initial assessment/diagnostic orders/clinical plan/treatment(s) is/are subject to change based on patients health status, clinical progression and re- assessment by fellow clinical providers in the ED. Further treatment and workup at subsequent clinical providers discretion. Patient/guardian urged not to elope from the ED as their condition may be serious if not clinically assessed and managed. Initial orders include:
[2019-06-04 21:17] LABS: Bacteria,Urine 1+ /HPF (Negative); Bilirubin,Urine NEG (Negative); Blood,Urine NEG (Negative); Color,Urine Amber (Yellow); Mucus,Urine FEW /HPF; WBC,Urine < 1.0 /HPF (0.0-6.0)
[2019-06-04 21:19] LABS: HCG Qualitative,Urine Positive (Negative)
[2019-06-04 22:25] LABS: Basophils # (Auto) 0.1 K/mm3 (0.0-0.1); Basophils % (Auto) 0.5 % (0.0-1.8); Eosinophils # (Auto) 0.1 K/mm3 (0.0-0.4); Eosinophils % (Auto) 0.5 % (0.0-4.3); Hematocrit 36.4 % (30.3-42.9); Hemoglobin 11.9 gm/dl (10.1-14.3); Lymphocytes # (Auto) 4.3 K/mm3 (1.2-5.4); Lymphocytes % (Auto) 31.8 % (13.4-35.0); Mean Corpuscular HGB Conc 33 % (30-34); Mean Corpuscular Volume 74 fl (79-97); Monocytes # (Auto) 0.8 K/mm3 (0.0-0.8); Monocytes % (Auto) 5.9 % (0.0-7.3); Platelet Count 299 K/mm3 (140-440); Red Blood Count 4.92 M/mm3 (3.65-5.03); Red Cell Distribution Width 16.7 % (13.2-15.2)
--- NOTE | 2019-06-04 22:41 | Emergency Department Report ---
ED General Adult HPI - General Chief complaint: Urogenital-Female Stated complaint: RIB/PELVIS PAIN Time Seen by Provider: 06/04/19 20:24 Source: patient Mode of arrival: Ambulatory Limitations: No Limitations - History of Present Illness Initial comments: The patient presents to the emergency department with a chief complaint of left rib pain and pelvic pain. Patient states she's had left rib pain every other month for the last 3 years. Patient denies any recent injury and states the rib pain started after her first child was born. Patient also complains of pelvic pain for the last week or so. Patient denies any vaginal bleeding, or discharge . -: Sudden Location: pelvis Radiation: non-radiation Severity scale (0 -10): 2 Quality: aching Consistency: constant Improves with: none Worsens with: none Associated Symptoms: denies other symptoms Treatments Prior to Arrival: none - Related Data Previous Rx's Medication Instructions Recorded Last Taken Type Naproxen [Naprosyn TAB] 500 mg PO BID PRN #12 tablet 02/02/19 Unknown Rx Cetirizine HCl [Zyrtec 10mg tab] 10 mg PO DAILY #30 tablet 05/07/19 Unknown Rx Fluticasone [Flonase] 1 spray NS QDAY #1 bottle 05/07/19 Unknown Rx Ondansetron [Zofran Odt] 4 mg PO Q6HR PRN #15 tab.rapdis 05/07/19 Unknown Rx medroxyPROGESTERone ACETATE 10 mg PO DAILY #10 tablet 05/07/19 Unknown Rx [Medroxyprogesterone Acetate] Allergies Allergy/AdvReac Type Severity Reaction Status Date / Time No Known Allergies Allergy Verified 02/02/19 11:30 ED Review of Systems ROS: Stated complaint: RIB/PELVIS PAIN Other details as noted in HPI Comment: All other systems reviewed and negative Constitutional: denies: chills, fever Eyes: denies: eye pain, eye discharge, vision change ENT: denies: ear pain, throat pain Respiratory: denies: cough, shortness of breath, wheezing Cardiovascular: denies: chest pain, palpitations Endocrine: no symptoms reported Gastrointestinal: abdominal pain. denies: nausea, diarrhea Genitourinary: denies: urgency, dysuria, discharge Musculoskeletal: denies: back pain, joint swelling, arthralgia Skin: denies: rash, lesions Neurological: denies: headache, weakness, paresthesias Psychiatric: denies: anxiety, depression Hematological/Lymphatic: denies: easy bleeding, easy bruising ED Past Medical Hx - Past Medical History Previous Medical History?: Yes Hx Hypertension: No Hx Congestive Heart Failure: No Hx Diabetes: No Hx Deep Vein Thrombosis: No Hx Renal Disease: No Hx Sickle Cell Disease: No Hx Seizures: No Hx Asthma: No Hx COPD: No Hx HIV: No Additional medical history: Ectopic 2014 - Surgical History Past Surgical History?: Yes Additional Surgical History: Ectopic - Social History Smoking Status: Current Every Day Smoker Substance Use Type: None - Medications Home Medications: Home Medications Medication Instructions Recorded Confirmed Last Taken Type Naproxen [Naprosyn TAB] 500 mg PO BID PRN #12 tablet 02/02/19 Unknown Rx Cetirizine HCl [Zyrtec 10mg tab] 10 mg PO DAILY #30 tablet 05/07/19 Unknown Rx Fluticasone [Flonase] 1 spray NS QDAY #1 bottle 05/07/19 Unknown Rx Ondansetron [Zofran Odt] 4 mg PO Q6HR PRN #15 tab.rapdis 05/07/19 Unknown Rx medroxyPROGESTERone ACETATE 10 mg PO DAILY #10 tablet 05/07/19 Unknown Rx [Medroxyprogesterone Acetate] ED Physical Exam - General Limitations: No Limitations General appearance: alert, in no apparent distress - Head Head exam: Present: atraumatic, normocephalic - Eye Eye exam: Present: normal appearance, PERRL, EOMI - ENT ENT exam: Present: mucous membranes moist - Neck Neck exam: Present: normal inspection - Respiratory Respiratory exam: Present: normal lung sounds bilaterally. Absent: respiratory distress - Cardiovascular Cardiovascular Exam: Present: regular rate, normal rhythm. Absent: systolic murmur, diastolic murmur, rubs, gallop - GI/Abdominal GI/Abdominal exam: Present: soft, normal bowel sounds. Absent: distended, tenderness - Rectal Rectal exam: Present: deferred - External exam: Present: other (deferreded) Speculum exam: Present: other (deferred) Bi-manual exam: Present: other (deferred) - Extremities Exam Extremities exam: Present: normal inspection - Back Exam Back exam: Present: normal inspection - Neurological Exam Neurological exam: Present: alert, oriented X3, CN II-XII intact. Absent: motor sensory deficit - Psychiatric Psychiatric exam: Present: normal affect, normal mood - Skin Skin exam: Present: warm, dry, intact, normal color. Absent: rash ED Course Vital Signs 06/04/19 20:24 Temperature 98.8 F Pulse Rate 100 H Respiratory 18 Rate Blood Pressure 140/86 O2 Sat by Pulse 100 Oximetry ED Medical Decision Making - Lab Data Result diagrams: 06/04/19 21:47 06/04/19 21:47 Lab Results 06/04/19 06/04/19 06/04/19 Range/Units 21:47 21:47 21:47 WBC 13.5 H (4.5-11.0) K/mm3 RBC 4.92 (3.65-5.03) M/mm3 Hgb 11.9 (10.1-14.3) gm/dl Hct 36.4 (30.3-42.9) % MCV 74 L (79-97) fl MCH 24 L (28-32) pg MCHC 33 (30-34) % RDW 16.7 H (13.2-15.2) % Plt Count 299 (140-440) K/mm3 Lymph % (Auto) 31.8 (13.4-35.0) % [place] % (Auto) 5.9 (0.0-7.3) % Eos % (Auto) 0.5 (0.0-4.3) % Baso % (Auto) 0.5 (0.0-1.8) % Lymph # 4.3 (1.2-5.4) K/mm3 [place] # 0.8 (0.0-0.8) K/mm3 Eos # 0.1 (0.0-0.4) K/mm3 Baso # 0.1 (0.0-0.1) K/mm3 Seg Neutrophils % 61.3 (40.0-70.0) % Seg Neutrophils # 8.3 H (1.8-7.7) K/mm3 Sodium 139 (137-145) mmol/L Potassium 3.8 (3.6-5.0) mmol/L Chloride 103.0 (98-107) mmol/L Carbon Dioxide 21 L (22-30) mmol/L Anion Gap 19 mmol/L BUN 10 (7-17) mg/dL Creatinine 0.7 (0.7-1.2) mg/dL Estimated GFR > 60 ml/min BUN/Creatinine Ratio 14 % Glucose 86 (65-100) mg/dL Calcium 9.0 (8.4-10.2) mg/dL Total Bilirubin 0.50 (0.1-1.2) mg/dL AST 12 (5-40) units/L ALT 16 (7-56) units/L Alkaline Phosphatase 79 (35-129) units/L Total Protein 7.8 (6.3-8.2) g/dL Albumin 4.4 (3.9-5) g/dL Albumin/Globulin Ratio 1.3 % HCG, Quant 4835 H (0-4) mIU/mL Urine Color (Yellow) Urine Turbidity (Clear) Urine pH (5.0-7.0) Ur Specific [place] (1.003-1.030) Urine Protein (Negative) mg/dL Urine Glucose (UA) (Negative) mg/dL Urine Ketones (Negative) mg/dL Urine Blood (Negative) Urine Nitrite (Negative) Urine Bilirubin (Negative) Urine Urobilinogen (<2.0) mg/dL Ur Leukocyte Esterase (Negative) Urine WBC (Auto) (0.0-6.0) /HPF Urine RBC (Auto) (0.0-6.0) /HPF U Epithel Cells (Auto) (0-13.0) /HPF Urine Bacteria (Auto) (Negative) /HPF Urine Mucus /HPF Urine HCG, Qual (Negative) 06/04/19 Range/Units Unknown WBC (4.5-11.0) K/mm3 RBC (3.65-5.03) M/mm3 Hgb (10.1-14.3) gm/dl Hct (30.3-42.9) % MCV (79-97) fl MCH (28-32) pg MCHC (30-34) % RDW (13.2-15.2) % Plt Count (140-440) K/mm3 Lymph % (Auto) (13.4-35.0) % [place] % (Auto) (0.0-7.3) % Eos % (Auto) (0.0-4.3) % Baso % (Auto) (0.0-1.8) % Lymph # (1.2-5.4) K/mm3 [place] # (0.0-0.8) K/mm3 Eos # (0.0-0.4) K/mm3 Baso # (0.0-0.1) K/mm3 Seg Neutrophils % (40.0-70.0) % Seg Neutrophils # (1.8-7.7) K/mm3 Sodium (137-145) mmol/L Potassium (3.6-5.0) mmol/L Chloride (98-107) mmol/L Carbon Dioxide (22-30) mmol/L Anion Gap mmol/L BUN (7-17) mg/dL Creatinine (0.7-1.2) mg/dL Estimated GFR ml/min BUN/Creatinine Ratio % Glucose (65-100) mg/dL Calcium (8.4-10.2) mg/dL Total Bilirubin (0.1-1.2) mg/dL AST (5-40) units/L ALT (7-56) units/L Alkaline Phosphatase (35-129) units/L Total Protein (6.3-8.2) g/dL Albumin (3.9-5) g/dL Albumin/Globulin Ratio % HCG, Quant (0-4) mIU/mL Urine Color [place] (Yellow) Urine Turbidity Cloudy (Clear) Urine pH 5.0 (5.0-7.0) Ur Specific [place] 1.030 (1.003-1.030) Urine Protein 30 mg/dl (Negative) mg/dL Urine Glucose (UA) Neg (Negative) mg/dL Urine Ketones Tr (Negative) mg/dL Urine Blood Neg (Negative) Urine Nitrite Neg (Negative) Urine Bilirubin Neg (Negative) Urine Urobilinogen 2.0 (<2.0) mg/dL Ur Leukocyte Esterase Mod (Negative) Urine WBC (Auto) < 1.0 (0.0-6.0) /HPF Urine RBC (Auto) 1.0 (0.0-6.0) /HPF U Epithel Cells (Auto) 4.0 (0-13.0) /HPF Urine Bacteria (Auto) 1+ (Negative) /HPF Urine Mucus Few /HPF Urine HCG, Qual Positive A (Negative) - Radiology Data Radiology results: report reviewed - Medical Decision Making Discussed results with patient Critical care attestation.: If time is entered above; I have spent that time in minutes in the direct care of this critically ill patient, excluding procedure time. ED Disposition Clinical Impression: , Abdominal pain in Disposition: DC- TO HOME OR SELFCARE Is pt being admited?: No Does the pt Need Aspirin: No Condition: Stable Instructions: (ED) Additional Instructions: return if worse or if there is vaginal bleeding or discharge Referrals: PRIMARY CARE, [Primary Care Provider] - 3-5 Days [facility] [Provider Group] - 3-[facility] [Provider [facility]] - 3-5 Days [facility] [Provider Group] - 3-5 Days Time of Disposition: 00:10
[2019-06-04 22:49] LABS: Alanine Aminotransferase 16 units/L (7-56); Albumin 4.4 g/dL (3.9-5); BUN/Creatinine Ratio 14; Blood Urea Nitrogen 10 mg/dL (7-17); Hemolysis Index 1
--- NOTE | 2019-06-05 00:01 | Ultrasound Report ---
ULTRASOUND OBSTETRIC INDICATION / CLINICAL INFORMATION: pelvic pain in . H/o ectopic. Clinical Gestational Age (GA): 4 weeks 2 days TECHNIQUE: Transabdominal and Transvaginal. COMPARISON: None available. FINDINGS: GESTATIONAL SAC: Very small gestational sac located in the uterine fundus. Sac measures 7.7 mm corres ponding to 5 weeks 4 days gestational age. YOLK SAC: No significant abnormality. EMBRYO/FETUS: No definite embryonic pole. ADNEXA: Small bilateral ovarian cysts measuring 1.6 cm on the right and 2.2 cm on the left. No adnexa l mass. FREE FLUID: None. ADDITIONAL FINDINGS: None. IMPRESSION: 1. Intrauterine gestational sac with yolk sac but no definite embryonic pole. Estimated sonographic a ge is 5 weeks 4 days. 2. Small bilateral ovarian cysts. No adnexal mass. Signer Name: Whit Davidson MD Signed: 06/04/2019 11:57 PM Workstation Name: [id number]
[2019-06-05 00:26] VITALS: BP 134/98
== END 2019-06-05 00:26 | disposition home or self-care (01) ==
LOC: ED 18:47
DX: O26.891 Other specified pregnancy related conditions, first trimester (principal); O99.331 Smoking (tobacco) complicating pregnancy, first trimester; Z3A.01 Less than 8 weeks gestation of pregnancy; Z79.899 Other long term (current) drug therapy
CPT/HCPCS: 36415; 76801; 76817; 80053; 81001; 81025; 84702; 85025; 99284

== ENCOUNTER 2019-06-16 23:32 | Emergency (ER) | payer MEDICAID ==
[2019-06-16 23:40] VITALS: BP 134/91
--- NOTE | 2019-06-17 00:27 | XRay Report ---
LEFT FOOT, 3 VIEWS 06/17/2019 INDICATION / CLINICAL INFORMATION: fall with pain and swelling. COMPARISON: None available. FINDINGS: There is a nondisplaced fracture through the base of the fifth metatarsal. Signer Name: Kg Reynoso MD Signed: 06/17/2019 12:22 AM Workstation Name: [id number]
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
[2019-06-17] MEDS ORDERED: IBUPROFEN PO ONE ×2 (01:17→04:34)
== END 2019-06-17 01:00 | disposition home or self-care (01) ==
LOC: ED 23:32
DX: S92.355A Nondisplaced fracture of fifth metatarsal bone, left foot, initial encounter for closed fracture (principal); V89.9XXA Person injured in unspecified vehicle accident, initial encounter; Y93.89 Activity, other specified; Y92.488 Other paved roadways as the place of occurrence of the external cause; Y99.8 Other external cause status

== ENCOUNTER 2019-12-18 06:52 | Outpatient (CLI) | payer MEDICAID ==
[2019-12-18 07:30] VITALS: BP 122/76
== END 2019-12-18 09:06 | disposition home or self-care (01) ==
LOC: TRG 06:52 → APU 06:59 → TRG 09:06
PROVIDERS: ATTEND Obstetrics & Gynecology
DX: O34.83 Maternal care for other abnormalities of pelvic organs, third trimester (principal); Z3A.34 34 weeks gestation of pregnancy
CPT/HCPCS: 59025

== ENCOUNTER 2021-08-01 18:43 | Emergency (ER) | payer MEDICAID ==
--- NOTE | 2021-08-01 21:53 | Emergency Department Report ---
ED Abdominal Pain HPI - General Chief Complaint: Abdominal Pain Stated Complaint: HERNIA Time Seen by Provider: 08/01/21 21:06 Source: patient Mode of arrival: Ambulatory Limitations: No Limitations - History of Present Illness Initial Comments: 26-year-old female presents to ED with complaint of umbilical hernia pain and irregular menstrual cycle. Patient reports having discomfort from her umbilical hernia for the past 6 months. Patient has an appointment scheduled with a surgeon in September 2020. Patient states currently she is having pain in her hernia when she eats. She states whenever she eats, her hernia will protrude, but states that it will go back in. Patient states she has been wearing a waist vocational trainer to help the hernia stay in. She denies any fever, nausea or vomiting. Patient is also reporting irregular periods over the last 1.5 months. States she will have vaginal bleeding x1 week, then it will stop for 1 week, then retur n. Patient states she was previously on control pills. Patient reports she had an 2 or 3 months ago. She denies any abdominal cramping related to the vaginal bleeding. Unknown history of fibroids. MD Complaint: abdominal pain -: month(s) (6) Location: periumbilical Radiation: none Migration to: no migration Severity: moderate Quality: aching Consistency: intermittent, now resolved Improves With: other (wearing waist vocational trainer) Worsens With: eating Associated Symptoms: denies: nausea, vomiting, fever - Related Data Previous Rx's Medication Instructions Recorded Last Taken Type Naproxen [Naprosyn TAB] 500 mg PO BID PRN #12 tablet 02/02/19 Unknown Rx Cetirizine HCl [Zyrtec 10mg tab] 10 mg PO DAILY #30 tablet 05/07/19 Unknown Rx Fluticasone [Flonase] 1 spray NS QDAY #1 bottle 05/07/19 Unknown Rx Ondansetron [Zofran Odt] 4 mg PO Q6HR PRN #15 tab.rapdis 05/07/19 Unknown Rx medroxyPROGESTERone ACETATE 10 mg PO DAILY #10 tablet 05/07/19 Unknown Rx [Medroxyprogesterone Acetate] HYDROcodone/APAP 5-325 [[place] 1 each PO Q6HR PRN #12 tablet 06/17/19 Unknown Rx 5/325] Allergies Allergy/AdvReac Type Severity Reaction Status Date / Time No Known Allergies Allergy Verified 08/01/21 19:44 ED Review of Systems ROS: Stated complaint: HERNIA Other details as noted in HPI Comment: All other systems reviewed and negative Constitutional: denies: fever Gastrointestinal: denies: nausea, vomiting Genitourinary: abnormal menses ED Past Medical Hx - Past Medical History Hx Hypertension: Yes Hx Congestive Heart Failure: No Hx Diabetes: No Hx Deep Vein Thrombosis: No Hx Renal Disease: No Hx Sickle Cell Disease: Yes Hx Seizures: No Hx Asthma: No Hx COPD: No Hx HIV: No Additional medical history: Ectopic 2015 - Surgical History Additional Surgical History: Ectopic . right ankle - Social History Smoking Status: Former Smoker - Medications Home Medications: Home Medications Medication Instructions Recorded Confirmed Last Taken Type Naproxen [Naprosyn TAB] 500 mg PO BID PRN #12 tablet 02/02/19 Unknown Rx Cetirizine HCl [Zyrtec 10mg tab] 10 mg PO DAILY #30 tablet 05/07/19 Unknown Rx Fluticasone [Flonase] 1 spray NS QDAY #1 bottle 05/07/19 Unknown Rx Ondansetron [Zofran Odt] 4 mg PO Q6HR PRN #15 tab.rapdis 05/07/19 Unknown Rx medroxyPROGESTERone ACETATE 10 mg PO DAILY #10 tablet 05/07/19 Unknown Rx [Medroxyprogesterone Acetate] HYDROcodone/APAP 5-325 [[place] 1 each PO Q6HR PRN #12 tablet 06/17/19 Unknown Rx 5/325] ED Physical Exam - General Limitations: No Limitations General appearance: alert, in no apparent distress - Head Head exam: Present: atraumatic, normocephalic - Eye Eye exam: Present: normal appearance, EOMI - ENT ENT exam: Present: mucous membranes moist - Neck Neck exam: Present: normal inspection - Respiratory Respiratory exam: Present: normal lung sounds bilaterally. Absent: respiratory distress - Cardiovascular Cardiovascular Exam: Present: regular rate, normal rhythm - GI/Abdominal GI/Abdominal exam: Present: soft, hernia (umbilical hernia present, nontender, not currently bulging). Absent: distended, tenderness - Extremities Exam Extremities exam: Present: normal inspection - Neurological Exam Neurological exam: Present: alert, oriented X3 - Psychiatric Psychiatric exam: Present: normal affect, normal mood - Skin Skin exam: Present: warm, dry, intact, normal color ED Course Vital Signs 08/01/21 08/01/21 19:41 23:13 Temperature 98.8 F Pulse Rate 76 85 Respiratory 12 Rate Blood Pressure 136/103 139/97 [Right] ED Medical Decision Making - Lab Data Result diagrams: 08/01/21 21:59 - Medical Decision Making 26-year-old female with umbilical hernia pain and irregular menstrual periods. Patient reporting pain to her umbilical hernia with eating. There is no hernia incarceration on exam, no protrusion of her hernia at this time. Hemoglobin is normal test is negative. Patient has appointment with general surgeon in September. Patient advised to follow-up with [facility] for her dysfunctional uterine bleeding. Patient stable for discharge. Outpatient follow-up advised, return precautions given. - Differential Diagnosis , fibroids, hernia Critical care attestation.: If time is entered above; I have spent that time in minutes in the direct care of this critically ill patient, excluding procedure time. ED Disposition Clinical Impression: Umbilical hernia, DUB (dysfunctional uterine bleeding) Disposition: HOME / SELF CARE / HOMELESS Is pt being admited?: No Condition: Stable Instructions: Umbilical Hernia, Adult, Abnormal Uterine Bleeding, [id number], Abdominal Pain (ED) Referrals: PRIMARY CARE, [Primary Care Provider] - 3-5 Days [facility] [Provider Group] - 3-5 Days ZION COHEN MD [Staff Physician] - 3-5 Days [facility] [Provider Group] - 3-5 Days DADA MEHTA DO [Staff Physician] - 3-5 Days Time of Disposition: 22:30
[2021-08-01 22:08] LABS: Basophils # (Auto) 0.1 K/mm3 (0.0-0.1); Basophils % (Auto) 0.6 % (0.0-1.8); Eosinophils # (Auto) 0.1 K/mm3 (0.0-0.4); Eosinophils % (Auto) 1.5 % (0.0-4.3); Hematocrit 34.4 % (30.3-42.9); Hemoglobin 10.7 gm/dl (10.1-14.3); Lymphocytes # (Auto) 3.4 K/mm3 (1.2-5.4); Lymphocytes % (Auto) 37.2 % (13.4-35.0); Mean Corpuscular HGB Conc 31 % (30-34); Monocytes # (Auto) 0.6 K/mm3 (0.0-0.8); Monocytes % (Auto) 6.5 % (0.0-7.3); Platelet Count 349 K/mm3 (140-440); Red Blood Count 5.24 M/mm3 (3.65-5.03); Red Cell Distribution Width 19.2 % (13.2-15.2)
[2021-08-01 22:09] LABS: Mean Corpuscular Volume 66 fl (79-97)
[2021-08-01 23:13] VITALS: BP 139/97
== END 2021-08-01 23:15 | disposition home or self-care (01) ==
LOC: ED 18:43
DX: K42.9 Umbilical hernia without obstruction or gangrene (principal); N93.8 Other specified abnormal uterine and vaginal bleeding; I10 Essential (primary) hypertension; D57.1 Sickle-cell disease without crisis; Z98.890 Other specified postprocedural states; Z87.891 Personal history of nicotine dependence
CPT/HCPCS: 36415; 84703; 85025; 99283